=== PATIENT | male | born 1970 | race Caucasian/White ===

== ENCOUNTER 2020-10-07 13:51 | Emergency (ER) | payer MEDICAID ==
[~2020-10-07] VITALS: Ht 162.6 cm; Wt 67.6 kg
[2020-10-07 14:07] VITALS: Ht 162.6 cm; Wt 67.6 kg
[2020-10-07 16:24] VITALS: BP 170/90
== END 2020-10-07 16:24 | disposition home or self-care (01) ==
LOC: ED 13:51
DX: H10.33 Unspecified acute conjunctivitis, bilateral (principal); H16.002 Unspecified corneal ulcer, left eye; E11.9 Type 2 diabetes mellitus without complications; Z98.890 Other specified postprocedural states
CPT/HCPCS: 82962

== ENCOUNTER 2020-11-07 07:13 | Emergency (ER) | payer MEDICAID ==
[~2020-11-07] VITALS: Ht 162.6 cm; Wt 69.4 kg
[2020-11-07 07:23] VITALS: Ht 162.6 cm; Wt 69.4 kg
[2020-11-07 12:24] VITALS: BP 176/93
== END 2020-11-07 12:24 | disposition home or self-care (01) ==
LOC: ED 07:13
DX: H16.002 Unspecified corneal ulcer, left eye (principal); E11.9 Type 2 diabetes mellitus without complications; Z98.890 Other specified postprocedural states
CPT/HCPCS: J3490